=== PATIENT | female | born 1955 | race African-American/Black ===

== ENCOUNTER 2024-01-19 07:30 | Day surgery (SDC) | payer OTHER ==
[2024-01-19] MEDS ORDERED: MIDAZOLAM HCL 2 MG/2 ML VIAL IV ONE (10:30)
[2024-01-19] MEDS ORDERED: FLUMAZENIL 0.5 MG/5ML ML IV ONE (10:30)
[2024-01-19] MEDS ORDERED: fentaNYL CITRATE 50 MCG/ML AMPUL IV ONE (10:30)
[2024-01-19] MEDS ORDERED: DIPHENHYDRAMINE HCL 50 MG/ML VIAL 1ML IV ONE (10:30)
== END 2024-01-19 12:20 | disposition home or self-care (01) ==
LOC: AMB-ENDOS 07:30
PROVIDERS: ATTEND Surgery
DX: D12.3 Benign neoplasm of transverse colon (principal); K63.5 Polyp of colon; K57.30 Diverticulosis of large intestine without perforation or abscess without bleeding; D37.4 Neoplasm of uncertain behavior of colon; R19.4 Change in bowel habit; R19.5 Other fecal abnormalities